=== PATIENT | female | born 1960 | race Caucasian/White ===

== ENCOUNTER 2017-05-06 12:32 | Emergency (ER) | payer BC ==
[2017-05-06 13:13] VITALS: BP 120/69
--- NOTE | 2017-05-06 13:53 | RAD ---
INDICATION: RIGHT wrist soft tissue swelling and pain following traumatic injury/fall. COMPARISON: None. TECHNIQUE: AP, lateral, and oblique views RIGHT wrist. REPORT: Negative for fracture at the distal radius or ulna or carpal bones. Negative for dislocation. Ulnar plus variance which results in increased stress on the triangular fibrocartilage. Associated subchondral sclerosis and cystic change at the opposing ulnar proximal pole of the lunate consistent with chronic ulnar abutment syndrome. Mild soft tissue swelling about the wrist greatest at the ulnar aspect. IMPRESSION: 1. Negative for fracture. 2. Ulnar plus variance and stigmata of chronic ulnar abutment syndrome.
--- NOTE | 2017-05-06 14:27 | UC ---
Hand/Wrist HPI - HPI Summary HPI Summary: FALL AT 1130 TWISTED IN HOLE WHILE GARDENING; LEFT ANKLE TWISTED, RIGHT WRIST PAIN WITH SWELLING. PAIN WITH FLEXION & EXTENSION - History Of Current Complaint Chief Complaint: UCUpperExtremity Stated Complaint: FELL HAND AND ANKLE INJURY Time Seen by Provider: 05/06/17 13:14 Hx Obtained From: Patient Onset/Duration: Sudden Onset, Lasting Hours, Still Present Severity Initially: Moderate Severity Currently: Moderate Character Of Pain: Dull, Aching Aggravating Factor(s): Movement, Flexion, Extension Alleviating: Rest, Ice Associated Signs And Symptoms: Positive: Swelling. Negative: Numbness/Tingling Related History: Dominant Hand Right - Allergies/Home Medications Allergies/Adverse Reactions: Allergies Allergy/AdvReac Type Severity Reaction Status Date / Time No Known Allergies Allergy Verified 05/06/17 13:04 Home Medications: Home Medications NK [No Home Medications Reported] 05/06/17 [History Confirmed 05/06/17] PMH/Surg Hx/FS Hx/Imm Hx Previously Healthy: Yes - Surgical History Surgical History: None - Family History Known Family History: Positive: Other - OSTEOARTHRITIS - Social History Occupation: Employed Full-time Lives: With Family Alcohol Use: None Substance Use Type: None Smoking Status (MU): Never Smoked Tobacco - Immunization History Most Recent Influenza Vaccination: did not receive Most Recent Tetanus Shot: unknown Review of Systems Constitutional: Negative Skin: Negative Eyes: Negative ENT: Negative Respiratory: Negative Cardiovascular: Negative Gastrointestinal: Negative Genitourinary: Negative Motor: Negative Neurovascular: Negative Musculoskeletal: Arthralgia, Edema - RIGHT WRIST, Myalgia Neurological: Negative Psychological: Negative All Other Systems Reviewed And Are Negative: Yes Physical Exam Triage Information Reviewed: Yes Appearance: Well-Appearing, Well-Nourished, Pain Distress - MILD Vital Signs: Initial Vital Signs Temp 99.6 F 05/06/17 13:06 Pulse 77 05/06/17 13:06 Resp 17 05/06/17 13:06 BP 120/69 05/06/17 13:06 Pulse Ox 98 05/06/17 13:06 Vital Signs Reviewed: Yes Eye Exam: Normal ENT Exam: Normal ENT: Positive: Normal ENT inspection, Hearing grossly normal, TMs normal Dental Exam: Normal Neck exam: Normal Neck: Positive: Supple, Nontender, No Lymphadenopathy Respiratory Exam: Normal Respiratory: Positive: Chest non-tender, Lungs clear, Normal breath sounds, No respiratory distress, No accessory muscle use Cardiovascular Exam: Normal Cardiovascular: Positive: RRR, No Murmur, Pulses Normal Abdominal Exam: Normal Musculoskeletal: Positive: Strength Intact, ROM Intact, Edema @ - RIGHT WRIST, Other: - LEFT ANKLE NONTENDER, NO EDEMA Neurological Exam: Normal Psychological Exam: Normal Skin Exam: Normal Hand/Wrist Course/Dx - Differential Dx/Diagnosis Differential Diagnosis/HQI/PQRI: Fracture, Sprain, Strain Provider Diagnoses: RIGHT WRIST SPRAIN, LEFT ANKLE SPRAIN, RIGHT CHRONIC ULNAR ABUTMENT SYNDROME Discharge - Discharge Plan Condition: Stable Disposition: HOME Patient Education Materials: Ankle Sprain (ED), Wrist Sprain (ED) Referrals: Anna Esposito MD [Primary Care Provider] - Rich Vogel MD [Medical Doctor] -
== END 2017-05-06 14:31 | disposition home or self-care (01) ==
LOC: UCEAST 12:32
DX: S63.501A Unspecified sprain of right wrist, initial encounter (principal); S93.402A Sprain of unspecified ligament of left ankle, initial encounter; M24.831 Other specific joint derangements of right wrist, not elsewhere classified; W17.2XXA Fall into hole, initial encounter; Y93.H2 Activity, gardening and landscaping
CPT/HCPCS: 99213; G0463